=== PATIENT | female | born 1960 | race Caucasian/White ===

== ENCOUNTER 2023-05-18 20:31 | Emergency (ER) | payer MEDICAID, SELFPAY ==
[2023-05-18 20:32] VITALS: BP 152/70; PULSE 82; RESP 18; TEMP 36.6; O2SAT 97; BMI 28.4
--- NOTE | 2023-05-18 21:10 | RAD_ITS ---
STUDY: X-RAY CHEST REASON FOR EXAM: Female, 63 years old. cough TECHNIQUE: Frontal and lateral views of the chest. COMPARISON: 07/01/2014. FINDINGS: The lungs are clear and expanded. There is no demonstrated pleural abnormality. Normal size heart. Implanted ekg monitor seen in typical location. Normal mediastinum and chelsey. Normal visualized pulmonary arteries. Normal visualized aortic arch and descending thoracic aorta. Normal visualized thoracic spine. Normal visualized ribs, clavicles, and shoulders. There is no demonstrated abnormality of the visualized soft tissue structures of the upper abdomen. RAD/Chest PA and Lateral IMPRESSION: No definite acute or significant abnormality seen. Electronically Signed: Gilberto Marcano MD at 21:33 EST ,
--- NOTE | 2023-05-18 21:10 | EX.ED.VIS.UR ---
HPI HPI - URI History of Present Illness Chief Complaint: Cough Narrative Narrative: 63-year-old female presenting with cough. She states she has had it for few months. Patient states she was seen at [facility] at the initial symptoms and had an x-ray and viral testing which was normal. She was put on steroids and albuterol. She states she was not on antibiotic. Patient reports she has been coughing since then. Denies any fevers but states she does not have a thermometer at home. She states that she tried to get follow-up with her PCP (Dr. Garcia) however she was told that she is no longer a part of this practice because she did not come in for routine healthcare checkups. Patient states that she has not been able to find a new PCP. Her chief complaint is of coughing but she also states she has chronic left ear pain as well. She does get from time to time posttussive emesis but states she is not nauseous when she is not coughing, and she has been able to eat and drink normally. ROS ROS ED Constitutional Constitutional ED: Denies chills, fever(s) or sweats Eyes Eyes: Denies blurry vision or change in vision ENT ENT ED: Reports sore throat and other Details: Left ear pain ; Denies ear pain Cardiovascular Cardiovascular: Denies chest pain, palpitations or racing heartbeat Respiratory/Chest Respiratory/Chest: Denies cough, dyspnea or sputum Gastrointestinal Gastrointestinal: Reports other Details: Posttussive emesis ; Denies abdominal pain, constipation, diarrhea, nausea or vomiting Genitourinary Genitourinary ED: Denies dysuria, hematuria or urinary frequency Musculoskeletal Musculoskeletal: Denies arthralgias, myalgias or neck pain Integumentary Denies abscess, Abrasions or rash Neurologic Neurologic: Denies headache(s), paresthesias or weakness Psychiatric Psychiatric: Denies anxiety, depression, suicidal ideation or suicidal thoughts Endocrine Endocrinology: Denies polydipsia or polyuria PFSH PFSH Home Medications benzonatate 200 mg capsule 200 mg PO TID PRN cough #20 caps 05/18/23 [Rx Last Taken Unknown] Allergy/AdvReac Type Severity Reaction Status Date / Time No Known Allergies Allergy Verified 05/18/23 20:37 Social History Smoking Status: Former smoker EXAM Physical Exam Const Vital Signs: 05/18/23 20:32 05/18/23 21:13 Temperature 97.9 F Temperature Source Temporal Pulse Rate 82 Respiratory Rate 18 Respiratory Effort Normal Non-Labored Respiratory Depth Normal Respiratory Pattern Normal Blood Pressure 152/70 H Blood Pressure Mean 97 Pulse Ox 97 Oxygen Delivery Method Room Air Room Air Positive well nourished General Appearance ED: NAD; Negative for pallor HEENT Reports moist mucous membranes normocephalic and atraumatic Throat: posterior oropharynx normal Eyes PERRL Neck no lymphadenopathy and supple Resp normal respiratory effort and clear to auscultation bilaterally Auscultation: Negative for rales, rhonchi or wheezes Cardio Rate: regular rate and bradycardia Extremity normal to inspection Neuro oriented x3 and CN's II-XII intact bilaterally Sensorium / Orientation: alert Motor Exam: strength 5/5 throughout Psych mental status grossly normal Skin General Skin Exam: Negative for jaundice or pallor MDM MDM MDM Narrative Medical decision making narrative: Patient presenting with cough for couple of months. No other signs or symptoms other than left ear pain. Patient reportedly treated for a viral syndrome a couple of months ago and has not had follow-up. Vital signs are normal. Lungs clear to auscultation bilaterally. Heart regular rate and rhythm without murmur. Discussed with her that it is possible she could have something viral although with the timeframe being over the last couple of months I do not believe viral testing will be of use. I did offer her two-view chest x-ray which we will obtain. 2 view chest on my interpretation is no acute process. Radiologist interprets this and agrees. Will start the patient on Tessalon Perles. I recommended she try to reestablish with Dr. Garcia as this is her previous position. Return precautions discussed. Impression: 1. Chronic cough Radiography Diagnostic Testing: Clinical Impression(s) from Imaging Studies Chest X-Ray 05/18/23 21:10 IMPRESSION: No definite acute or significant abnormality seen. Electronically Signed: Gilberto Marcano MD at 21:33 EST , Discharge Plan Triage Chief Complaint: Cough ED Provider: Adams,Baudilio Dx/Rx/DC Orders Clinical Impression: Cough Instructions: ED Cough Chronic Uncertain Cause Adult Prescriptions: New benzonatate 200 mg capsule 200 mg PO TID PRN (Reason: cough) Qty: 20 0RF Primary Care Provider: Care Physician,No Primary Referrals: Rick Garcia MD [Non-Staff] - 3-5 Days Care Physician,No Primary [Primary Care Provider] - Disposition Disposition: Home, Self Care
[2023-05-18 21:13] VITALS: O2SAT 95
[2023-05-18] MEDS: Benzonatate 100 MG Capsule 200 MG PO (22:06)
[2023-05-18 22:07] VITALS: BP 152/70; PULSE 79; RESP 18; TEMP 36.6; O2SAT 96
== END 2023-05-18 22:08 | disposition home or self-care (01) ==
PROVIDERS: Emergency Provider Student in an Organized Health Care Education/Training Program; Visit Provider Student in an Organized Health Care Education/Training Program
DX: R05.3 Chronic cough (principal); Z87.891 Personal history of nicotine dependence
CPT/HCPCS: 71046; 99282